=== PATIENT | male | born 1945 | race Caucasian/White ===

== ENCOUNTER 2020-10-07 04:39 | Inpatient (IN) | payer MEDICARE, MEDICAID ==
[2020-10-07 05:20] LABS: Bilirubin Neg (Negative); Blood, Urine Negative (Negative); Clarity Clear (Clear); Glucose, Urine (Dipstick) Normal (Negative); Ketone, Urine Negative (Negative); Leukocyte Negative (Negative); Nitrite Negative (Negative); Protein, Urine (Dipstick) Negative (Neg-Trace); Urobilinogen Normal mg/dL (Less than 2)
[2020-10-07 05:25] LABS: #Basophils 0.1 10x3/uL (0.0-0.2); #Eosinphils 0.3 10x3/uL (0.0-0.5); #Monocytes 0.6 10x3/uL (0.0-1.1); #Neutrophils 10.2 10x3/uL (1.5-8.4); %Basophils 0.5 % (0.0-2.0); %Eosinophils 2.6 % (0.0-6.0); %Lymphocytes 10.5 % (18.0-47.0); %Monocytes 5.1 % (0.0-10.0); %Neutrophils 80.9 % (40.0-75.0); Hemoglobin 15.1 g/dL (13.5-17.5); Mean Corpuscular HGB CONC 30.8 g/dL (32.0-36.0); Mean Corpuscular Hemoglobin 27.5 pg (27.0-33.0); Mean Corpuscular Volume 89.3 fl (81.2-95.1); Mean Platelet Volume 10.6 fl (7.4-10.4); Platelet Count 233 10x3/uL (150-450); RBC Distribution Width 16.1 % (11.5-14.5); White Blood Cell (WBC) Count 12.7 10x3/uL (3.5-10.5)
[2020-10-07] MEDS ORDERED: cefTRIAXone\\ROCEPHIN 1 GM VIAL ONE (05:25)
[2020-10-07 05:36] LABS: INR-International Normal Ratio 1.1; PTT 26.9 sec (22.0-33.0); Prothrombin Time 11.7 sec (9.5-12.1)
[2020-10-07 05:37] LABS: ALT (SGPT) 25 U/L (8-55); AST (SGOT) 26 U/L (5-34); Albumin 3.7 g/dL (3.4-4.8); Alkaline Phosphatase 60 U/L (40-110); Anion Gap 16 mmol/L (10-20); BUN (Urea Nitrogen) 23 mg/dL (8.4-25.7); Bilirubin, Total 0.6 mg/dL (0.2-1.2); Calc. Creatinine Clearance 0 mL/min (70-130); Calcium 9.5 mg/dL (7.8-10.44); Carbon Dioxide 29 mmol/L (23-31); Chloride 98 mmol/L (98-107); Digoxin 0.39 ng/mL (0.8-2.0); Globulin 2.7 g/dL (2.4-3.5); Glucose 188 mg/dL (83-110); Potassium 4.1 mmol/L (3.5-5.1); Protein, Total 6.4 g/dL (5.8-8.1); Sodium 139 mmol/L (136-145)
[2020-10-07] MEDS ORDERED: Acetaminophen 325 MG TAB PO PRN (06:21)
[2020-10-07] MEDS ORDERED: Calcium Carbonate 500 MG ChewTAB PO PRN (06:21)
[2020-10-07] MEDS ORDERED: Ondansetron PF 4 MG/2 ML Vial IVP PRN (06:21)
[2020-10-07] MEDS ORDERED: Dextrose 50% Abboject 50 ML SYRINGE SLOW IVP PRN (06:21)
[2020-10-07] MEDS ORDERED: Senokot S 8.6-50 MG TAB PO PRN (06:21)
[2020-10-07] MEDS ORDERED: Guaifenesin DM 100-10/5 ML UDCUP PO PRN (06:21)
[2020-10-07] MEDS ORDERED: Dextrose 5% in Water 1,000 ML IV PRN (06:21)
[2020-10-07] MEDS ORDERED: Piperacillin/Tazobactam 3.375 GM VIAL ONE ×2 (06:43→13:21)
[2020-10-07 06:56] LABS: SARS-CoV-2 NAA Rapid Test Not Detected (NotDetected)
[2020-10-07 07:39] LABS: Lactic Acid 3.2 mmol/L (0.5-2.2)
[2020-10-07] MEDS ORDERED: Ondansetron PF 4 MG/2 ML Vial ONE (08:14)
[2020-10-07] MEDS ORDERED: HumaLOG 300 UNITS/3 ML VIAL ONE (08:14)
[2020-10-07] MEDS: HumaLOG 300 UNITS/3 ML VIAL SC PRN ×2 (08:19→18:52)
[2020-10-07 08:28] LABS: Lactic Acid 3.2 mmol/L (0.5-2.2)
[2020-10-07] MEDS ORDERED: Piperacillin/Tazobactam 3.375 GM in Sodium Chloride 0.9% 100 ML IVPB SCH (09:00)
[2020-10-07] MEDS ORDERED: Digoxin 0.25 MG TAB ONE (09:14)
[2020-10-07] MEDS ORDERED: Clopidogrel Bisulfate 75 MG TAB ONE (09:15)
[2020-10-07] MEDS ORDERED: Lantus 1000 UNITS/10 ML VIAL ONE (09:15)
[2020-10-07] MEDS ORDERED: Apixaban 5 MG TAB ONE (09:15)
[2020-10-07] MEDS: Lantus 1000 UNITS/10 ML VIAL SC SCH (09:40)
[2020-10-07] MEDS: Cholecalciferol 1,000 UNITS (25 MCG) TAB PO SCH (09:40)
[2020-10-07] MEDS: Digoxin 0.25 MG TAB PO SCH (09:40)
[2020-10-07] MEDS: Pregabalin 75 MG CAP PO SCH ×2 (09:40→22:31)
[2020-10-07] MEDS: Clopidogrel Bisulfate 75 MG TAB PO SCH (09:40)
[2020-10-07] MEDS: Fenofibrate Nanocrystallized 145 MG TAB PO SCH (09:40)
[2020-10-07] MEDS: Apixaban 5 MG TAB PO SCH ×2 (09:40→22:34)
[2020-10-07] MEDS ORDERED: Sodium Chloride 0.9% 1,000 ML IV SCH (11:15)
[2020-10-07] MEDS: Piperacillin/Tazobactam 3.375 GM in Sodium Chloride 0.9% 100 ML IVPB SCH ×2 (13:19→22:30)
[2020-10-07 17:29] VITALS: BMI 38.5
[2020-10-08] MEDS: HYDROcodone/Acetaminophen 5/325 mg Tablet PO PRN ×4 (02:57→22:15)
[2020-10-08] MEDS ORDERED: Sodium Chloride 0.9% 250 ML 250 ML ONE (05:34)
[2020-10-08 05:56] LABS: #Eosinphils 0.2 10x3/uL (0.0-0.5); #Monocytes 0.5 10x3/uL (0.0-1.1); #Neutrophils 3.5 10x3/uL (1.5-8.4); %Basophils 0.4 % (0.0-2.0); %Eosinophils 3.4 % (0.0-6.0); %Lymphocytes 21.5 % (18.0-47.0); %Monocytes 9.2 % (0.0-10.0); %Neutrophils 65.3 % (40.0-75.0); Mean Corpuscular HGB CONC 31.3 g/dL (32.0-36.0); Mean Corpuscular Volume 89.7 fl (81.2-95.1); Mean Platelet Volume 10.6 fl (7.4-10.4); Platelet Count 142 10x3/uL (150-450); RBC Distribution Width 16.3 % (11.5-14.5); Red Blood Cell (RBC) Count 4.28 10x6/uL (4.32-5.72); White Blood Cell (WBC) Count 5.3 10x3/uL (3.5-10.5)
[2020-10-08] MEDS: Azithromycin 500 MG in Sodium Chloride 0.9% 250 ML 250 ML IVPB SCH (06:02)
[2020-10-08] MEDS: Piperacillin/Tazobactam 3.375 GM in Sodium Chloride 0.9% 100 ML IVPB SCH ×3 (06:04→22:17)
[2020-10-08] MEDS: Levothyroxine Sodium 125 MCG TAB PO SCH (06:18)
[2020-10-08 07:35] LABS: Anion Gap 13 mmol/L (10-20); BUN (Urea Nitrogen) 23 mg/dL (8.4-25.7); Calc. Creatinine Clearance 99 mL/min (70-130); Calcium 8.4 mg/dL (7.8-10.44); Carbon Dioxide 23 mmol/L (23-31); Chloride 109 mmol/L (98-107); Glucose 118 mg/dL (83-110); Potassium 5.4 mmol/L (3.5-5.1); Sodium 140 mmol/L (136-145)
[2020-10-08] MEDS: Apixaban 5 MG TAB PO SCH ×2 (09:12→22:18)
[2020-10-08] MEDS: Atorvastatin Calcium 20 MG TAB PO SCH (09:12)
[2020-10-08] MEDS: Cholecalciferol 1,000 UNITS (25 MCG) TAB PO SCH (09:13)
[2020-10-08] MEDS: Pregabalin 75 MG CAP PO SCH ×2 (09:13→22:18)
[2020-10-08] MEDS: Fenofibrate Nanocrystallized 145 MG TAB PO SCH (09:13)
[2020-10-08] MEDS: Clopidogrel Bisulfate 75 MG TAB PO SCH (09:13)
[2020-10-08] MEDS: Digoxin 0.25 MG TAB PO SCH (09:13)
[2020-10-08] MEDS: Lantus 1000 UNITS/10 ML VIAL SC SCH (09:15)
[2020-10-08] MEDS: HumaLOG 300 UNITS/3 ML VIAL SC PRN ×2 (12:30→17:35)
[2020-10-08 14:36] LABS: Anion Gap 11 mmol/L (10-20); BUN (Urea Nitrogen) 20 mg/dL (8.4-25.7); Calc. Creatinine Clearance 106 mL/min (70-130); Calcium 8.4 mg/dL (7.8-10.44); Carbon Dioxide 28 mmol/L (23-31); Chloride 104 mmol/L (98-107); Glucose 218 mg/dL (83-110); Potassium 4.3 mmol/L (3.5-5.1); Sodium 139 mmol/L (136-145)
[2020-10-08 23:22] LABS: Strep pneumo Urine Ag NEGATIVE (NEGATIVE)
[2020-10-08 23:23] LABS: Legionella Urinary Ag Negative (Negative)
[2020-10-09] MEDS: HumaLOG 300 UNITS/3 ML VIAL SC PRN (00:08)
[2020-10-09] MEDS: HYDROcodone/Acetaminophen 5/325 mg Tablet PO PRN ×4 (02:32→19:30)
[2020-10-09 06:09] LABS: #Eosinphils 0.4 10x3/uL (0.0-0.5); #Monocytes 0.5 10x3/uL (0.0-1.1); #Neutrophils 3.8 10x3/uL (1.5-8.4); %Basophils 0.7 % (0.0-2.0); %Eosinophils 6.4 % (0.0-6.0); %Lymphocytes 19.8 % (18.0-47.0); %Monocytes 8.1 % (0.0-10.0); %Neutrophils 64.7 % (40.0-75.0); Hemoglobin 13.3 g/dL (13.5-17.5); Mean Corpuscular HGB CONC 30.6 g/dL (32.0-36.0); Mean Corpuscular Hemoglobin 27.3 pg (27.0-33.0); Mean Corpuscular Volume 88.9 fl (81.2-95.1); Mean Platelet Volume 10.7 fl (7.4-10.4); Platelet Count 181 10x3/uL (150-450); Red Blood Cell (RBC) Count 4.88 10x6/uL (4.32-5.72); White Blood Cell (WBC) Count 5.9 10x3/uL (3.5-10.5)
[2020-10-09 06:24] LABS: Anion Gap 12 mmol/L (10-20); BUN (Urea Nitrogen) 16 mg/dL (8.4-25.7); Calc. Creatinine Clearance 109 mL/min (70-130); Calcium 9.1 mg/dL (7.8-10.44); Carbon Dioxide 29 mmol/L (23-31); Chloride 102 mmol/L (98-107); Glucose 100 mg/dL (83-110); Sodium 139 mmol/L (136-145)
[2020-10-09] MEDS: Levothyroxine Sodium 125 MCG TAB PO SCH (06:38)
[2020-10-09] MEDS: Piperacillin/Tazobactam 3.375 GM in Sodium Chloride 0.9% 100 ML IVPB SCH ×2 (06:39→15:09)
[2020-10-09] MEDS ORDERED: Furosemide 20 MG/2 ML VIAL SLOW IVP SCH (08:00)
[2020-10-09] MEDS: Azithromycin 500 MG in Sodium Chloride 0.9% 250 ML 250 ML IVPB SCH (09:03)
[2020-10-09] MEDS: Clopidogrel Bisulfate 75 MG TAB PO SCH (09:04)
[2020-10-09] MEDS: Digoxin 0.25 MG TAB PO SCH (09:04)
[2020-10-09] MEDS: Fenofibrate Nanocrystallized 145 MG TAB PO SCH (09:04)
[2020-10-09] MEDS: Pregabalin 75 MG CAP PO SCH ×2 (09:04→20:26)
[2020-10-09] MEDS: Lantus 1000 UNITS/10 ML VIAL SC SCH (09:05)
[2020-10-09] MEDS: Cholecalciferol 1,000 UNITS (25 MCG) TAB PO SCH (09:05)
[2020-10-09] MEDS: Apixaban 5 MG TAB PO SCH ×2 (09:05→20:26)
[2020-10-10] MEDS: HYDROcodone/Acetaminophen 5/325 mg Tablet PO PRN ×2 (02:49→09:13)
[2020-10-10] MEDS: Levothyroxine Sodium 125 MCG TAB PO SCH (05:25)
[2020-10-10 05:53] LABS: #Basophils 0.1 10x3/uL (0.0-0.2); #Eosinphils 0.3 10x3/uL (0.0-0.5); #Monocytes 0.5 10x3/uL (0.0-1.1); #Neutrophils 3.6 10x3/uL (1.5-8.4); %Basophils 0.9 % (0.0-2.0); %Eosinophils 5.9 % (0.0-6.0); %Lymphocytes 19.9 % (18.0-47.0); %Monocytes 8.5 % (0.0-10.0); %Neutrophils 64.3 % (40.0-75.0); Hemoglobin 12.5 g/dL (13.5-17.5); Mean Corpuscular HGB CONC 30.9 g/dL (32.0-36.0); Mean Corpuscular Hemoglobin 27.4 pg (27.0-33.0); Mean Corpuscular Volume 88.8 fl (81.2-95.1); Mean Platelet Volume 10.6 fl (7.4-10.4); Platelet Count 185 10x3/uL (150-450); RBC Distribution Width 15.9 % (11.5-14.5); Red Blood Cell (RBC) Count 4.56 10x6/uL (4.32-5.72); White Blood Cell (WBC) Count 5.6 10x3/uL (3.5-10.5)
[2020-10-10 05:59] LABS: Anion Gap 13 mmol/L (10-20); BUN (Urea Nitrogen) 14 mg/dL (8.4-25.7); Calc. Creatinine Clearance 111 mL/min (70-130); Calcium 9.3 mg/dL (7.8-10.44); Carbon Dioxide 27 mmol/L (23-31); Chloride 106 mmol/L (98-107); Glucose 108 mg/dL (83-110); Potassium 4.2 mmol/L (3.5-5.1); Sodium 142 mmol/L (136-145)
[2020-10-10 07:19] VITALS: BP 122/77; TEMP 98
[2020-10-10] MEDS: Digoxin 0.25 MG TAB PO SCH (09:13)
[2020-10-10] MEDS: Clopidogrel Bisulfate 75 MG TAB PO SCH (09:13)
[2020-10-10] MEDS: Atorvastatin Calcium 20 MG TAB PO SCH (09:13)
[2020-10-10] MEDS: Cholecalciferol 1,000 UNITS (25 MCG) TAB PO SCH (09:13)
[2020-10-10] MEDS: Apixaban 5 MG TAB PO SCH (09:14)
[2020-10-10] MEDS: Pregabalin 75 MG CAP PO SCH (09:14)
[2020-10-10] MEDS: Lantus 1000 UNITS/10 ML VIAL SC SCH (09:15)
== END 2020-10-10 12:11 | disposition home or self-care (01) | DRG 871 ==
LOC: SUATTDRO 04:39 → CSHERS 04:39 → CSHERHOLD 07:44 → CSHTELE 17:00
PROVIDERS: ADMIT Student in an Organized Health Care Education/Training Program; ATTEND Family Medicine
DX: A41.9 Sepsis, unspecified organism (principal); J18.9 Pneumonia, unspecified organism; J96.01 Acute respiratory failure with hypoxia; I48.19 Other persistent atrial fibrillation; I13.0 Hypertensive heart and chronic kidney disease with heart failure and stage 1 through stage 4 chronic kidney disease, or unspecified chronic kidney disease; I50.22 Chronic systolic (congestive) heart failure; E86.0 Dehydration; Z95.810 Presence of automatic (implantable) cardiac defibrillator; I25.10 Atherosclerotic heart disease of native coronary artery without angina pectoris; E78.5 Hyperlipidemia, unspecified; E11.22 Type 2 diabetes mellitus with diabetic chronic kidney disease; N18.2 Chronic kidney disease, stage 2 (mild); G47.33 Obstructive sleep apnea (adult) (pediatric); E11.65 Type 2 diabetes mellitus with hyperglycemia; Z79.4 Long term (current) use of insulin; E66.9 Obesity, unspecified; Z68.38 Body mass index [BMI] 38.0-38.9, adult; Z20.822 Contact with and (suspected) exposure to COVID-19
CPT/HCPCS: 0240U; 36415; 36416; 71045; 80048; 80053; 80162; 81003; 83605; 83880; 84145; 84484; 85025; 85610; 85730; 87040; 87449; 87899; 93005; 94660; 94760; 96365; 96367; 96374; J0456; J0696; J1815; J1956; J2405; J2543; J3490; J7050

== ENCOUNTER 2021-04-06 09:46 | Outpatient (CLI) | payer MEDICARE, MEDICAID | END 2021-04-06 09:47 | disposition home or self-care (01) | LOC: CSHCT 09:46 | PROVIDERS: ATTEND Physical Medicine & Rehabilitation | DX: M54.50 Low back pain, unspecified (principal); M79.606 Pain in leg, unspecified; M43.16 Spondylolisthesis, lumbar region; M43.9 Deforming dorsopathy, unspecified; M51.36 Other intervertebral disc degeneration, lumbar region | CPT/HCPCS: 72131 ==

== ENCOUNTER 2023-01-04 15:29 | Inpatient (IN) | payer MEDICARE, MEDICAID ==
[~2023-01-04 15:29] MED LIST: Dexamethasone 4 MG TAB PO SCH
[2023-01-04 16:00] LABS: #Eosinphils 0.2 10x3/uL (0.0-0.5); #Monocytes 0.6 10x3/uL (0.0-1.1); #Neutrophils 4.2 10x3/uL (1.5-8.4); %Basophils 0.7 % (0.0-2.0); %Eosinophils 2.9 % (0.0-6.0); %Lymphocytes 15.7 % (18.0-47.0); %Monocytes 9.8 % (0.0-10.0); %Neutrophils 70.4 % (40.0-75.0); Hematocrit 37.8 % (38.8-50.0); Hemoglobin 12.1 g/dL (13.5-17.5); Mean Corpuscular Hemoglobin 27.7 pg (27.0-33.0); Mean Corpuscular Volume 86.5 fl (81.2-95.1); Mean Platelet Volume 10.2 fl (7.4-10.4); Platelet Count 179 10x3/uL (150-450); RBC Distribution Width 16.4 % (11.5-14.5); Red Blood Cell (RBC) Count 4.37 10x6/uL (4.32-5.72); White Blood Cell (WBC) Count 5.9 10x3/uL (3.5-10.5)
[2023-01-04 16:15] LABS: ALT (SGPT) 19 U/L (8-55); AST (SGOT) 22 U/L (5-34); Albumin 3.3 g/dL (3.4-4.8); Alkaline Phosphatase 64 U/L (40-110); Anion Gap 14 mmol/L (10-20); BUN (Urea Nitrogen) 17 mg/dL (8.4-25.7); Bilirubin, Total 0.6 mg/dL (0.2-1.2); Calc. Creatinine Clearance 0 mL/min (70-130); Calcium 8.5 mg/dL (7.8-10.44); Carbon Dioxide 27 mmol/L (23-31); Chloride 100 mmol/L (98-107); Estimated GFR 89; Globulin 2.5 g/dL (2.4-3.5); Glucose 87 mg/dL (83-110); Potassium 3.9 mmol/L (3.5-5.1); Protein, Total 5.8 g/dL (5.8-8.1); Sodium 137 mmol/L (136-145)
[2023-01-04] MEDS ORDERED: Piperacillin/Tazobactam 4.5 GM VIAL ONE (16:18)
[2023-01-04 17:12] LABS: SARS-CoV-2 NAA Rapid Test DETECTED (NotDetected)
[2023-01-04] MEDS ORDERED: Acetaminophen 325 MG TAB PO PRN ×2 (18:05)
[2023-01-04] MEDS ORDERED: Ondansetron PF 4 MG/2 ML Vial IVP PRN (18:05)
[2023-01-04] MEDS ORDERED: Acetaminophen 650 MG Suppository PR PRN (18:05)
[2023-01-04] MEDS ORDERED: Benzonatate 100 MG CAP PO PRN (18:05)
[2023-01-04] MEDS ORDERED: Dextrose 50% Abboject 50 ML SYRINGE SLOW IVP PRN (18:44)
[2023-01-04] MEDS ORDERED: Glucagon 1 MG/ML KIT IM PRN (18:44)
[2023-01-04] MEDS ORDERED: Dextrose 5% in Water 1,000 ML IV PRN (18:44)
[2023-01-04] MEDS ORDERED: Ventolin HFA Inhaler 60 PUFF INHALER INH PRN (20:32)
[2023-01-04] MEDS ORDERED: Dexamethasone 4 MG TAB PO SCH (20:45)
[2023-01-04 20:55] VITALS: BMI 32.5
[2023-01-04] MEDS ORDERED: Lantus 1000 UNITS/10 ML VIAL SC SCH (21:00)
[2023-01-04] MEDS ORDERED: REMDESIVIR 200 MG in Sodium Chloride 0.9% 250 ML 210 ML IV SCH (22:00)
[2023-01-04] MEDS: Atorvastatin Calcium 40 MG TAB PO SCH (22:20)
[2023-01-04] MEDS: Tamsulosin HCl 0.4 MG CAP PO SCH (22:20)
[2023-01-04] MEDS: Apixaban 5 MG TAB PO SCH (22:22)
[2023-01-04] MEDS: Sacubitril 24MG/Valsartan 26 MG TAB PO SCH (22:22)
[2023-01-04] MEDS ORDERED: HYDROcodone/Acetaminophen 10/325 mg Tablet PO SCH (23:45)
[2023-01-04] MEDS ORDERED: Pregabalin 75 MG CAP PO SCH (23:45)
[2023-01-05 04:10] LABS: ALT (SGPT) 26 U/L (8-55); AST (SGOT) 46 U/L (5-34); Albumin 3.1 g/dL (3.4-4.8); Alkaline Phosphatase 73 U/L (40-110); Anion Gap 14 mmol/L (10-20); BUN (Urea Nitrogen) 17 mg/dL (8.4-25.7); Bilirubin, Total 0.6 mg/dL (0.2-1.2); Calc. Creatinine Clearance 110 mL/min (70-130); Calcium 8.2 mg/dL (7.8-10.44); Carbon Dioxide 25 mmol/L (23-31); Chloride 101 mmol/L (98-107); Estimated GFR 89; Globulin 2.4 g/dL (2.4-3.5); Glucose 175 mg/dL (83-110); Potassium 4.2 mmol/L (3.5-5.1); Protein, Total 5.5 g/dL (5.8-8.1); Sodium 136 mmol/L (136-145)
[2023-01-05] MEDS: Clopidogrel Bisulfate 75 MG TAB PO SCH (08:58)
[2023-01-05] MEDS: Apixaban 5 MG TAB PO SCH ×2 (08:58→21:40)
[2023-01-05] MEDS: Dexamethasone 4 MG TAB PO SCH (08:58)
[2023-01-05] MEDS: Sacubitril 24MG/Valsartan 26 MG TAB PO SCH ×2 (09:15→21:40)
[2023-01-05] MEDS: Venlafaxine 75 MG TAB PO SCH (09:16)
[2023-01-05] MEDS: HumaLOG 300 UNITS/3 ML VIAL SC PRN ×2 (11:14→21:51)
[2023-01-05] MEDS: HYDROcodone/Acetaminophen 5/325 mg Tablet PO PRN ×2 (18:33→23:21)
[2023-01-05] MEDS: Levothyroxine Sodium 125 MCG TAB PO SCH (20:22)
[2023-01-05] MEDS: Tamsulosin HCl 0.4 MG CAP PO SCH (21:39)
[2023-01-05] MEDS: Atorvastatin Calcium 40 MG TAB PO SCH (21:39)
[2023-01-05] MEDS: Lantus 1000 UNITS/10 ML VIAL SC SCH (21:41)
[2023-01-05] MEDS ORDERED: Pregabalin 75 MG CAP PO SCH (22:15)
[2023-01-05] MEDS: REMDESIVIR 100 MG in Sodium Chloride 0.9% 250 ML 230 ML IV SCH (23:25)
[2023-01-06 03:35] LABS: #Monocytes 0.5 10x3/uL (0.0-1.1); #Neutrophils 3.2 10x3/uL (1.5-8.4); %Basophils 0.2 % (0.0-2.0); %Lymphocytes 17.5 % (18.0-47.0); %Monocytes 11.3 % (0.0-10.0); %Neutrophils 70.6 % (40.0-75.0); Hematocrit 35.6 % (38.8-50.0); Hemoglobin 11.3 g/dL (13.5-17.5); Mean Corpuscular HGB CONC 31.7 g/dL (32.0-36.0); Mean Corpuscular Hemoglobin 27.6 pg (27.0-33.0); Mean Corpuscular Volume 86.8 fl (81.2-95.1); Mean Platelet Volume 10.7 fl (7.4-10.4); Platelet Count 146 10x3/uL (150-450); RBC Distribution Width 16.1 % (11.5-14.5); White Blood Cell (WBC) Count 4.5 10x3/uL (3.5-10.5)
[2023-01-06 03:58] LABS: ALT (SGPT) 33 U/L (8-55); AST (SGOT) 48 U/L (5-34); Albumin 3.1 g/dL (3.4-4.8); Alkaline Phosphatase 62 U/L (40-110); Anion Gap 14 mmol/L (10-20); BUN (Urea Nitrogen) 21 mg/dL (8.4-25.7); Bilirubin, Total 0.4 mg/dL (0.2-1.2); Calc. Creatinine Clearance 103 mL/min (70-130); Carbon Dioxide 26 mmol/L (23-31); Chloride 101 mmol/L (98-107); Estimated GFR 84; Globulin 2.4 g/dL (2.4-3.5); Glucose 153 mg/dL (83-110); Potassium 3.8 mmol/L (3.5-5.1); Protein, Total 5.5 g/dL (5.8-8.1); Sodium 137 mmol/L (136-145)
[2023-01-06] MEDS: Levothyroxine Sodium 125 MCG TAB PO SCH (05:51)
[2023-01-06] MEDS: HYDROcodone/Acetaminophen 5/325 mg Tablet PO PRN ×4 (06:13→23:17)
[2023-01-06] MEDS: Venlafaxine 75 MG TAB PO SCH (08:41)
[2023-01-06] MEDS: Clopidogrel Bisulfate 75 MG TAB PO SCH (08:41)
[2023-01-06] MEDS: Apixaban 5 MG TAB PO SCH ×2 (08:41→21:01)
[2023-01-06] MEDS: Sacubitril 24MG/Valsartan 26 MG TAB PO SCH ×2 (08:42→21:00)
[2023-01-06] MEDS: Dexamethasone 4 MG TAB PO SCH (08:42)
[2023-01-06] MEDS ORDERED: Pregabalin 75 MG CAP PO SCH ×2 (11:00→21:00)
[2023-01-06] MEDS: HumaLOG 300 UNITS/3 ML VIAL SC PRN ×3 (13:00→22:31)
[2023-01-06] MEDS: Tamsulosin HCl 0.4 MG CAP PO SCH (21:00)
[2023-01-06] MEDS: Atorvastatin Calcium 40 MG TAB PO SCH (21:01)
[2023-01-06] MEDS: Lantus 1000 UNITS/10 ML VIAL SC SCH (21:02)
[2023-01-06] MEDS: REMDESIVIR 100 MG in Sodium Chloride 0.9% 250 ML 230 ML IV SCH (21:08)
[2023-01-06] MEDS: Pregabalin 75 MG CAP PO SCH (21:09)
[2023-01-07 04:23] LABS: #Eosinphils 0.1 10x3/uL (0.0-0.5); #Monocytes 0.5 10x3/uL (0.0-1.1); #Neutrophils 3.8 10x3/uL (1.5-8.4); %Basophils 0.2 % (0.0-2.0); %Eosinophils 2.2 % (0.0-6.0); %Monocytes 8.6 % (0.0-10.0); %Neutrophils 67.6 % (40.0-75.0); Hematocrit 35.9 % (38.8-50.0); Hemoglobin 11.4 g/dL (13.5-17.5); Mean Corpuscular HGB CONC 31.8 g/dL (32.0-36.0); Mean Corpuscular Hemoglobin 27.4 pg (27.0-33.0); Mean Corpuscular Volume 86.3 fl (81.2-95.1); Mean Platelet Volume 11.2 fl (7.4-10.4); Platelet Count 157 10x3/uL (150-450); RBC Distribution Width 16.2 % (11.5-14.5); Red Blood Cell (RBC) Count 4.16 10x6/uL (4.32-5.72); White Blood Cell (WBC) Count 5.6 10x3/uL (3.5-10.5)
[2023-01-07 04:35] LABS: ALT (SGPT) 32 U/L (8-55); AST (SGOT) 39 U/L (5-34); Albumin 3.1 g/dL (3.4-4.8); Alkaline Phosphatase 55 U/L (40-110); Anion Gap 13 mmol/L (10-20); BUN (Urea Nitrogen) 22 mg/dL (8.4-25.7); Bilirubin, Total 0.4 mg/dL (0.2-1.2); Calc. Creatinine Clearance 126 mL/min (70-130); Calcium 7.9 mg/dL (7.8-10.44); Carbon Dioxide 25 mmol/L (23-31); Chloride 101 mmol/L (98-107); Estimated GFR 93; Globulin 2.4 g/dL (2.4-3.5); Glucose 106 mg/dL (83-110); Potassium 3.8 mmol/L (3.5-5.1); Protein, Total 5.5 g/dL (5.8-8.1); Sodium 135 mmol/L (136-145)
[2023-01-07] MEDS: Levothyroxine Sodium 125 MCG TAB PO SCH (06:40)
[2023-01-07] MEDS: HYDROcodone/Acetaminophen 5/325 mg Tablet PO PRN (06:45)
[2023-01-07] MEDS: Sacubitril 24MG/Valsartan 26 MG TAB PO SCH (08:37)
[2023-01-07] MEDS: Clopidogrel Bisulfate 75 MG TAB PO SCH (08:38)
[2023-01-07] MEDS: Dexamethasone 4 MG TAB PO SCH (08:38)
[2023-01-07] MEDS: Apixaban 5 MG TAB PO SCH (08:38)
[2023-01-07] MEDS: Pregabalin 75 MG CAP PO SCH (08:59)
[2023-01-07] MEDS: Venlafaxine 75 MG TAB PO SCH (09:05)
[2023-01-07 09:28] VITALS: BP 88/40; TEMP 98.7
== END 2023-01-07 11:53 | disposition home or self-care (01) | DRG 177 ==
LOC: CSHERS 15:29 → SUATTDRO 15:29 → CSHTELE 17:58
PROVIDERS: ADMIT Internal Medicine; ATTEND Internal Medicine
PROC: 8E0ZXY6 Isolation (ICD-10-PCS; principal; 2023-01-04)
PROC: XW033E5 Introduction of Remdesivir Anti-infective into Peripheral Vein, Percutaneous Approach, New Technology Group 5 (ICD-10-PCS; 2023-01-04)
PROC: 3E0DX3Z Introduction of Anti-inflammatory into Mouth and Pharynx, External Approach (ICD-10-PCS; 2023-01-04)
DX: U07.1 COVID-19 (principal); J96.01 Acute respiratory failure with hypoxia; I13.0 Hypertensive heart and chronic kidney disease with heart failure and stage 1 through stage 4 chronic kidney disease, or unspecified chronic kidney disease; I48.20 Chronic atrial fibrillation, unspecified; I50.22 Chronic systolic (congestive) heart failure; E11.22 Type 2 diabetes mellitus with diabetic chronic kidney disease; E66.9 Obesity, unspecified; G47.33 Obstructive sleep apnea (adult) (pediatric); N18.2 Chronic kidney disease, stage 2 (mild); E03.9 Hypothyroidism, unspecified; Z91.041 Radiographic dye allergy status; Z79.899 Other long term (current) drug therapy; Z79.4 Long term (current) use of insulin; Z79.01 Long term (current) use of anticoagulants; Z86.73 Personal history of transient ischemic attack (TIA), and cerebral infarction without residual deficits; Z79.890 Hormone replacement therapy; Z68.32 Body mass index [BMI] 32.0-32.9, adult; Z95.810 Presence of automatic (implantable) cardiac defibrillator; Z95.5 Presence of coronary angioplasty implant and graft; Z89.611 Acquired absence of right leg above knee
CPT/HCPCS: 36415; 36416; 71045; 80053; 82728; 83605; 83615; 84145; 85025; 86140; 93005; 93010; 94760; 94762; 96365; J0248; J1815; J2543; J7050; J8540

== ENCOUNTER 2025-02-17 14:01 | Outpatient (CLI) | payer OTHER | END 2025-02-17 14:02 | disposition home or self-care (01) | LOC: CSHULT 14:01 | PROVIDERS: ATTEND Physician Assistant | DX: R31.9 Hematuria, unspecified (principal) | CPT/HCPCS: 76856 ==